=== PATIENT | female | born 1990 | race Asian ===

== ENCOUNTER → 2023-10-23 09:20 | Outpatient (REF) | payer OTHER, SELFPAY ==
[2023-10-23 10:17] LABS: % Basophils 0.4 % (0-2); % Eosinophils 0.4 % (0-6); % Immature Granulocytes 0.2 % (0-0.5); % Lymphocytes 18.9 % (20.5-51.1); % Monocytes 7.8 % (1.7-9.3); % Neutrophils 72.3 % (42.2-75.2); Absolute Lymphocytes 0.9 10^3/uL (1.2-3.4); Absolute Monocytes 0.4 10^3/uL (0.1-0.6); Absolute Neutrophils 3.3 10^3/uL (1.4-6.5); Hemoglobin 13.4 g/dL (12.0-16.0); Mean Corp Hgb Conc. 34.4 g/dL (33.0-37.0); Mean Corpuscular Hgb 31.5 pg (27.0-31.0); Mean Corpuscular Volume 91.5 fL (81.0-99.0); Mean Platelet Volume 9.6 fL (7.4-10.4); Nucleated Red Blood Cells % 0 %; Platelet Count 208 10^3/uL (130-400); Red Blood Cell Count 4.26 10^6/uL (4.20-5.40); Red Cell Dist. Width 12.2 % (11.5-14.5); White Blood Cell Count 4.6 10^3/uL (4.8-10.8)
[2023-10-23 10:20] LABS: Urine Albumin Negative (Neg - Trace); Urine Bilirubin Negative (Negative); Urine Character Clear (Clear); Urine Color Yellow; Urine Glucose Negative (Negative); Urine Ketone Negative (Negative); Urine Leukocyte Negative (Negative); Urine Nitrite Negative (Negative); Urine Occult Blood Negative (Negative); Urine Urobilinogen Negative (Neg - 1+)
[2023-10-23 10:46] LABS: ALT (SGPT) 15 U/L (0-35); AST (SGOT) 24 U/L (14-36); Albumin 4.7 g/dl (3.5-5.0); Alkaline Phosphatase 39 U/L (38-126); Blood Urea Nitrogen 13 mg/dl (7-17); Calcium 9.7 mg/dl (8.4-10.2); Carbon Dioxide 27 mmol/L (22-30); Chloride 100 mmol/L (98-107); Glucose 86 mg/dl (70-99); Potassium 4.4 mmol/L (3.5-5.1); Sodium 136 mmol/L (135-145); Total Bilirubin 0.7 mg/dl (0.2-1.3); Total Protein 7.5 g/dl (6.3-8.2); eGFR > 60.00
[2023-10-23 10:51] LABS: Protein/creatinine Ratio 0.1; Urine Protein 5 mg/dl
[2023-10-23 10:54] LABS: Complement C3 63 mg/dl (88-165)
[2023-10-23 11:01] LABS: Urine Bacteria Few (Negative); Urine Red Blood Cell 0-2 /HPF (0-2); Urine White Cell 0-2 /HPF (0-5)
[2023-10-23 11:06] LABS: Erythrocyte Sed Rate 6 mm/hour (0-20)
[2023-10-23 11:21] LABS: Ferritin 58.4 ng/ml (6.24-137)
[2023-10-25 07:27] LABS: ANA, IgG Reflex to HEp-2 Detected (None Detected)
[2023-10-25 19:49] LABS: ds-DNA Ab, IgG Reflex To Titer 112 IU (0-24)
[2023-10-26 15:36] LABS: ANA, HEp-2, IgG Detected (<1:80)
[2023-10-29 07:14] LABS: ANA Pattern Homogeneous
== END ==
LOC: RAD 09:20
PROVIDERS: ATTENDING PHYSICIAN Internal Medicine Rheumatology; FAMILY PHYSICIAN Internal Medicine; OTHER PHYSICIAN Physician Assistant Medical
DX: M54.12 Radiculopathy, cervical region (principal); L93.0 Discoid lupus erythematosus; D76.1 Hemophagocytic lymphohistiocytosis
CPT/HCPCS: 36415; 72050; 80053; 81003; 81015; 82570; 82728; 84156; 85025; 85652; 86038; 86039; 86160; 86225; 86256

== ENCOUNTER → 2024-03-25 09:24 | Outpatient (REF) | payer OTHER, SELFPAY ==
[2024-03-25 10:52] LABS: % Basophils 0.6 % (0-2); % Eosinophils 1.4 % (0-6); % Immature Granulocytes 0.6 % (0-0.5); % Lymphocytes 24.8 % (20.5-51.1); % Monocytes 10.2 % (1.7-9.3); % Neutrophils 62.4 % (42.2-75.2); Absolute Eosinophils 0.1 10^3/uL (0-0.7); Absolute Lymphocytes 0.9 10^3/uL (1.2-3.4); Absolute Monocytes 0.4 10^3/uL (0.1-0.6); Absolute Neutrophils 2.3 10^3/uL (1.4-6.5); Hemoglobin 14.2 g/dL (12.0-16.0); Mean Corp Hgb Conc. 34.6 g/dL (33.0-37.0); Mean Corpuscular Hgb 32.3 pg (27.0-31.0); Mean Corpuscular Volume 93.4 fL (81.0-99.0); Mean Platelet Volume 9.5 fL (7.4-10.4); Nucleated Red Blood Cells % 0 %; Platelet Count 186 10^3/uL (130-400); Red Blood Cell Count 4.39 10^6/uL (4.20-5.40); White Blood Cell Count 3.6 10^3/uL (4.8-10.8)
[2024-03-25 11:11] LABS: Urine Albumin Negative (Neg - Trace); Urine Bilirubin Negative (Negative); Urine Character Clear (Clear); Urine Color Yellow; Urine Glucose Negative (Negative); Urine Ketone Negative (Negative); Urine Leukocyte Negative (Negative); Urine Nitrite Negative (Negative); Urine Occult Blood Negative (Negative); Urine Urobilinogen Negative (Neg - 1+)
[2024-03-25 11:54] LABS: Erythrocyte Sed Rate 10 mm/hour (0-20)
[2024-03-25 12:06] LABS: Urine Squamous Cell >30 /LPF (Few)
[2024-03-25 12:07] LABS: Urine Bacteria Few (Negative); Urine Red Blood Cell 0-2 /HPF (0-2); Urine White Cell 0-2 /HPF (0-5)
[2024-03-25 13:15] LABS: Protein/creatinine Ratio 0.1; Urine Protein 6 mg/dl
[2024-03-25 13:33] LABS: ALT (SGPT) 17 U/L (0-35); AST (SGOT) 28 U/L (14-36); Albumin 4.6 g/dl (3.5-5.0); Alkaline Phosphatase 52 U/L (38-126); Blood Urea Nitrogen 12 mg/dl (7-17); Calcium 9.5 mg/dl (8.4-10.2); Carbon Dioxide 24 mmol/L (22-30); Chloride 103 mmol/L (98-107); Glucose 79 mg/dl (70-99); Potassium 4.1 mmol/L (3.5-5.1); Sodium 135 mmol/L (135-145); Total Bilirubin 0.8 mg/dl (0.2-1.3); Total Protein 7.3 g/dl (6.3-8.2); eGFR > 60.00
[2024-03-25 14:59] LABS: Ferritin 45.5 ng/ml (6.24-137)
[2024-03-27 00:06] LABS: Complement C3 70 mg/dl (88-165)
[2024-03-27 17:02] LABS: ds-DNA Ab, IgG Reflex To Titer >300 IU (0-24)
== END ==
LOC: REG 09:24
PROVIDERS: ATTENDING PHYSICIAN Internal Medicine Rheumatology; FAMILY PHYSICIAN Family Medicine
DX: L93.0 Discoid lupus erythematosus (principal)
CPT/HCPCS: 36415; 80053; 81003; 81015; 82570; 82728; 84156; 85025; 85652; 86160; 86225

== ENCOUNTER → 2024-10-28 12:05 | Outpatient (REF) | payer BC, SELFPAY | LOC: RAD 12:05 | PROVIDERS: ATTENDING PHYSICIAN Internal Medicine; FAMILY PHYSICIAN Physician Assistant Medical | DX: R07.89 Other chest pain (principal); M32.9 Systemic lupus erythematosus, unspecified | CPT/HCPCS: 71046 ==

== ENCOUNTER 2024-11-09 03:14 | Inpatient (IN) | payer BC, SELFPAY ==
[2024-11-08 21:47] VITALS: BP 136/85
[2024-11-08 22:09] LABS: % Basophils 0.2 % (0-2); % Eosinophils 0.4 % (0-6); % Immature Granulocytes 0.8 % (0-0.5); % Lymphocytes 14.7 % (20.5-51.1); % Monocytes 5.3 % (1.7-9.3); % Neutrophils 78.6 % (42.2-75.2); Absolute Lymphocytes 0.8 10^3/uL (1.2-3.4); Absolute Monocytes 0.3 10^3/uL (0.1-0.6); Hematocrit 34.4 % (37.0-47.0); Hemoglobin 12.1 g/dL (12.0-16.0); Mean Corp Hgb Conc. 35.2 g/dL (33.0-37.0); Mean Corpuscular Hgb 31.1 pg (27.0-31.0); Mean Corpuscular Volume 88.4 fL (81.0-99.0); Mean Platelet Volume 8.6 fL (7.4-10.4); Nucleated Red Blood Cells % 0 %; Platelet Count 249 10^3/uL (130-400); Red Blood Cell Count 3.89 10^6/uL (4.20-5.40); Red Cell Dist. Width 11.8 % (11.5-14.5); White Blood Cell Count 5.1 10^3/uL (4.8-10.8)
[2024-11-08 22:22] VITALS: BP 122/87
[2024-11-08 22:23] LABS: HCG, Serum Qualitative Screen Negative
[2024-11-08 22:24] LABS: ALT (SGPT) 14 U/L (0-35); AST (SGOT) 23 U/L (14-36); Albumin 3.6 g/dl (3.5-5.0); Alkaline Phosphatase 64 U/L (38-126); Blood Urea Nitrogen 17 mg/dl (7-17); Calcium 8.5 mg/dl (8.4-10.2); Carbon Dioxide 26 mmol/L (22-30); Chloride 103 mmol/L (98-107); Glucose 100 mg/dl (70-99); Potassium 3.8 mmol/L (3.5-5.1); Sodium 136 mmol/L (135-145); Total Bilirubin 0.4 mg/dl (0.2-1.3); Total Protein 6.5 g/dl (6.3-8.2); eGFR > 60.00
[2024-11-08 22:33] VITALS: BMI 24.3
[2024-11-08 22:33] LABS: NT-proBNP 467 pg/ml; Troponin I < 0.012 ng/ml
[2024-11-08] MEDS: DECADRON 8 MG IV (23:09)
[2024-11-08] MEDS: NSS 500 IV (23:09)
--- NOTE | 2024-11-08 23:17 | ED.GENMED ---
History of Present Illness
General
Chief Complaint: Chest Pain
Source: patient
Exam Limitations: none
Time Seen by Provider: 11/08/24 22:23
History of Present Illness
History of Present Illness:
33-year-old female with a history of lupus. Ongoing lupus flare like symptoms times months. Joint pains chest pains body aches. She has been on a long prednisone taper. Whenever her prednisone dosing gets low her symptoms return. The last few
days she noted some increased chest symptoms with increased chest pain pleuritic in nature. Mild shortness of breath. No fever. Mostly here for this evaluation. She states she also tends to respond to a dose of Decadron
Past History
Past History
ED Past Medical History: Other (Lupus possible fibromyalgia)
ED Past Surgical History: None
Social History
Tobacco: Non-smoker
Alcohol: None
Drug: None
Personal:
Living: with family
Employment: Employed
Family History
Family History: Other (Noncontributory)
Review of Systems
Review of Systems
All Other Systems: Not applicable
Constitutional: Denies fever or chills
ABD/GI: Reports no symptoms
Phy Exam
Physical Exam
Physical Exam:
GENERAL: Alert and oriented in no apparent distress
EYE: Orbits normal.
NECK: Supple, no significant adenopathy.
ENT: Pharynx without erythema
CARDIAC: Regular rate and rhythm without any obvious murmurs.
LUNGS: Clear breath sounds,normal
ABDOMEN: Soft, without focal tenderness or distention
NEUROLOGICAL: Alert and oriented , grossly non-focal
SKIN: Warm and dry, no rash or lesion, no discoloration, skin intact.
MUSCULOSKELETAL: No edema,no deformity.Good color
PSYCH: Normal and appropriate interaction.
Scores
Heart Score for Chest Pain Patients
STEMI patient?: Not applicable
Course
Orders/Labs/Results
Orders:
Orders
11/08/24 21:54
Cardiac Monitoring- Treatment ONCE
IV Insert/Care/Rem.- Treatment PRN
CR Chest - 2 Views Urgent
Comment:
Reason For Exam: respiratory distress
O2 Therapy [RESP] Urgent
Titrate/Wean O2 to maintain O2 sat greater than (%): 93
Special Instructions: TO MAINTAIN CONTINUOUS O2 SATS >/= 93%
Pulse Ox/cont/shift [RESP] Urgent
Quantity: 1
Special Instructions: continuous pulse ox
11/08/24 21:55
Test Result ONCE
11/08/24 21:59
C-Reactive Protein Urgent
Comment: ADD ON
Complete Blood Count/With Diff Urgent
Comprehensive Metabolic Panel Urgent
Erythrocyte Sed Rate Urgent
Comment: ADD ON
HCG, Serum Qualitative Screen Urgent
Comment: Notify provider if positive test present
NT-proBNP Urgent
Troponin I Urgent
11/08/24 22:57
Add On- LAB Urgent
Tests Added?: esr,crp
IV Insert/Care/Rem.- Treatment PRN
0.9% Sodium Chloride 500 ml [Nss] 500 ml IV BOLUS
Dexamethasone Sod Phosphate [Decadron] 8 mg IV NOW STA
11/08/24 23:19
Electrocardiogram (*1) Stat
Reason for Study: Other
Other Reason for Exam: chest pain
EKG- Treatment ONCE
11/09/24 00:01
CT Chest PE Study Urgent
Reason For Exam: Pleuritic chest pain. History of lupus
Abnormal Lab Results
11/08/24
21:59
RBC 3.89 L 10^6/uL
(4.20-5.40)
Hct 34.4 L %
(37.0-47.0)
MCH 31.1 H pg
(27.0-31.0)
Absolute Lymphs (auto) 0.8 L 10^3/uL
(1.2-3.4)
Immature Gran % 0.8 H %
(0-0.5)
Neutrophils % 78.6 H %
(42.2-75.2)
Lymphocytes % 14.7 L %
(20.5-51.1)
ESR 54 H mm/hour
(0-20)
Glucose 100 H mg/dl
(70-99)
C-Reactive Protein 27.10 H mg/L
(0.0-10.00)
11/08/24 21:59
11/08/24 21:59
Vital Signs
Initial and Last Documented VS:
Initial Vital Signs
Temp Pulse Resp BP Pulse Ox
99.1 F 89 20 136/85 99
11/08/24 21:47 11/08/24 21:47 11/08/24 21:47 11/08/24 21:47 11/08/24 21:47
Last Documented Vital Signs
Temp Pulse Resp BP Pulse Ox
99.1 F 70 20 123/86 96
11/08/24 21:47 11/09/24 00:52 11/09/24 00:52 11/09/24 00:52 11/09/24 00:52
MDM/Problems Addressed
Differential Diagnosis Includes:
Moderate symptoms related to her lupus flare with moderate pericardial effusion. Warrants inpatient management
*Radiology
Radiology exam reviewed: radiology read reviewed (Moderate pericardial effusion. Trace left pleural effusion atelectasis left base unchanged)
*Pulse Oximetry
Patient hypoxic: no
*EKG
Interpreted by ED Provider?: Yes
Interpretation: normal
Comparison EKG: no changes
Heart Rate: 87
Rate: normal
Rhythm: sinus
[place]: normal axis
Interval: normal interval
QRS Pattern: normal QRS
Ischemia: no ischemia
*Critical Care Note
Total Time (30-74mins, 75-104mins- exclusive of procedures): Not Applicable
ED Attending Note
-
Portions of this chart may have been created with voice recognition software.� Occasional wrong word or��sound alike� substitutions may have occurred due to the inherent limitations of voice recognition software.
Discharge Plan
Departure
Patient Disposition: Admit
Date of Disposition: 11/09/24
Time of Disposition: 01:38
Presentation/result/management discussed w/ accepting MD/DO: Hospitalist
Discharge Problem:
Moderate pericardial effusion, Lupus flare
Prescriptions:
No Action
hydroxychloroquine 200 MG tablet
300 mg PO DAILY
ibuprofen [Advil] 200 MG tablet
400 mg PO Q6HPRN PRN (Reason: fever)
cholecalciferol (vitamin D3) 2,000 UNITS tablet
2,000 units PO DAILY Qty: 30 0RF
prednisone
10 mg PO DAILY
Referrals:
Dorita Eagle PA-C [Family Provider] -
Interventions
Interventions:
*Risk Screen - Suicide Last Done: 11/08/24 21:47
*General Assessment Last Done: 11/08/24 21:47
*Neglect/Abuse Screening Last Done: 11/08/24 22:35
*ED- Fall Risk Assessment Last Done: 11/08/24 21:47
*ED COVID-19 Vaccine History Last Done: 11/08/24 21:47
ED- Cardiac Assessment Last Done: 11/08/24 23:15
Discharge Date and Time
Print Language: WOLOF
[2024-11-09 00:06] LABS: Erythrocyte Sed Rate 54 mm/hour (0-20)
[2024-11-09 00:52] VITALS: BP 123/86
--- NOTE | 2024-11-09 02:21 | HPS.HSE ---
Family Physician
-
Family Physician: Dorita Eagle PA-C
Chief Complaint
-
Chest Pain
History of Present Illness
Patient is a 33y F with PMH significant for SLE who presents to ED complaining of chest pain. Patient states that she has been having uncontrolled symptoms from lupus since 07/2024. She has been on varying doses of prednisone since that time
for control of her symptoms - most recently she has been taking 10mg daily for the most part (her Shake Maker advised her to adjust the dose as needed for control of her symptoms).
For the past 3 weeks patient has noted sharp left-sided chest pain. Pain is worse with movement, coughing, deep breathing, etc.
She has had no fevers - but did have a single episode of shaking chills several days ago.
She was seen by her PCP who treated her with 5 days of levofloxacin for suspected pneumonia based on outpatient CXR. Her symptoms did not improve.
Over the past 2 days, she has appreciated spread of the chest discomfort to the middle and right sides of the chest. With increasing symptoms she presented to the ED for further evaluation.
Patient does note some SOB - which she associates with shallow breathing / splinting to avoid pain.
No GI or complaints.
She is in the process of being evaluated to begin azathioprine for her SLE but has not started this yet.
She was previously treated with CellCept - but this was discontinued in March 2024.
Medical History
Past Medical History
Past Medical History: Reports Other
Additional Past Medical History:
SLE
Past Surgical History: Reports None
Social History
Tobacco: Non-smoker
Alcohol: None
Drug: None
Family History
Family History: Not pertinent
Allergies / Home Medications
Allergies reflects when Allergies were last updated in [facility].
Home Medications with original date entered in [facility]
Allergy/Medication List:
Allergies
Allergy/AdvReac Type Severity Reaction Status Date / Time
duloxetine [From Cymbalta] Allergy Nausea / Verified 11/08/24 21:46
Vomiting
Home Medications
hydroxychloroquine 200 mg tablet 300 mg PO DAILY Autoimmune disorder 09/13/19
ibuprofen 200 mg tablet (Advil) 400 mg PO Q6HPRN PRN fever 02/22/20
cholecalciferol (vitamin D3) 50 mcg (2,000 unit) tablet 2,000 units PO DAILY #30 tabs 02/27/20
prednisone 10 mg PO DAILY 11/08/24
Review of Systems
-
History Source: Patient
A 12 point ROS was completed and negative except as noted: Yes
Constitutional: Reports Fatigue and Chills; Denies Fever
EENT: Denies Sore Throat
Respiratory: Reports Trouble Breathing; Denies Cough or Hemoptysis
Cardiac: Reports Chest Pain; Denies Diaphoresis or Palpitations
Abdomen/GI: Denies Abdominal Pain, Nausea, Vomiting or Diarrhea
: Denies Dysuria, Frequency or Flank Pain
Musculoskeletal: Reports Joint Pain, Joint Swelling and Edema
Neurological: Denies Dizzy or Headache
Psych: Denies Depression or Anxiety
Physical Exam
Vital Signs
Vital Signs
Temp Pulse Resp BP Pulse Ox
99.1 F 70 20 123/86 96
11/08/24 21:47 11/09/24 00:52 11/09/24 00:52 11/09/24 00:52 11/09/24 00:52
Physical Exam
General: Other (33y F in no acute distress.)
HEENT: Moist mucous membranes and PERRLA
Respiratory: Other (Decreased BS bilaterally. No W/R/R.)
Cardiac: S1/S2 and Regular Rhythm; No Murmur
GI: Soft, Non Tender, Non Distended and Normal Bowel Sounds
Musculoskeletal: No Clubbing, No Cyanosis and Other (Trace edema / joint swelling x 4 extremities.)
Neuro: AO x 3
Laboratory Results
-
11/08/24 21:59
11/08/24 21:
Laboratory Results
Total Bilirubin 0.4 mg/dl (0.2-1.3) 11/08/24:
AST 23 U/L (14-36) 11/08/24:
ALT 14 U/L (0-35) 11/08/24:
Alkaline Phosphatase 64 U/L (38-126) 11/08/24:
Troponin I < 0.012 ng/ml 11/08/24:59
Impression/Plan
-
A/P: Patient is a 33y F with PMH significant for SLE who presents to ED complaining of worsening chest pain.
SLE with Subacute Flare
Pericarditis / Pericardial Effusion
- Admit for further evaluation and treatment.
- Prednisone 20mg BID for now and wean as able once symptoms improved.
- Continue current dose of Plaquenil.
- Toradol as needed for breakthrough pain / symptoms.
- GI protection with PPI for now.
- Check Echo.
- Cardiology evaluation for additional recommendations.
- Follow-up with Rheumatology for additional recommendations / azathioprine initiation after discharge.
DVT Prophylaxis: SCDs
Code Status: Full
[2024-11-09 03:53] VITALS: BP 105/67
[2024-11-09 04:13] VITALS: BP 121/74; BMI 24.4
--- NOTE | 2024-11-09 04:47 | PTCARENOTE ---
Patient arrived from the ED via stretcher at approximately 0400. Patient ambulated self from stretcher to bed - gait steady. AAOx3. VSS as documented. Assessment as documented. Patient oriented to room. Bed in lowest position. Call martinez within
reach.
[2024-11-09 06:00] VITALS: BMI 24.4
[2024-11-09 07:35] VITALS: BP 116/78
[2024-11-09 07:36] LABS: Hematocrit 36.1 % (37.0-47.0); Hemoglobin 12.5 g/dL (12.0-16.0); Mean Corp Hgb Conc. 34.6 g/dL (33.0-37.0); Mean Corpuscular Hgb 30.6 pg (27.0-31.0); Mean Corpuscular Volume 88.5 fL (81.0-99.0); Mean Platelet Volume 8.6 fL (7.4-10.4); Platelet Count 240 10^3/uL (130-400); Red Blood Cell Count 4.08 10^6/uL (4.20-5.40); Red Cell Dist. Width 11.7 % (11.5-14.5); White Blood Cell Count 4.2 10^3/uL (4.8-10.8)
[2024-11-09 08:08] LABS: Blood Urea Nitrogen 13 mg/dl (7-17); Calcium 8.7 mg/dl (8.4-10.2); Carbon Dioxide 27 mmol/L (22-30); Chloride 104 mmol/L (98-107); Estimated Creatinine Clearance 119 ml/min; Glucose 134 mg/dl (70-99); Potassium 3.9 mmol/L (3.5-5.1); Sodium 137 mmol/L (135-145); eGFR > 60.00
[2024-11-09] MEDS: VITAMIN D3 (cholecalciferol) 50 MCG PO (09:18)
[2024-11-09] MEDS: PROTONIX PO (09:18)
[2024-11-09] MEDS: DELTASONE 20 MG PO (09:18)
[2024-11-09] MEDS: PROTONIX 40 MG PO (09:22)
--- NOTE | 2024-11-09 10:15 | W.PN.UPDATE ---
Update Note
Progress Note Update
Seen by Dr. Stroud this morning.
Admitted with 3 weeks of chest pain more so on the left chest wall and pleuritic in nature. Was treated for possibility of left lower lobe pneumonia with antibiotics without any change last week. She still has pleuritic left chest pain. On top of
that she noticed that 3 days of anterior chest pain which is progressively worse. It was making her difficult to take a deep breath and was feeling short of breath. Better sitting forward and worse with lying back.
Patient also been experiencing increasing joint pain and discomfort symptoms for the last 3 weeks as well. She was suggested a higher dose of her prednisone by assembler seat but since the chest pain was severe she came to the hospital.
Since and a higher dose of steroid she is already feeling better with the chest pain though it is not resolved.
No pericardial rub. No crackles or wheeze in the left lung.
CT chest noted.
Clinical suspicion of pericarditis and pleuritis. Trace fluid send both pericardium n the left pleural area. No evidence of pneumonia in the left lung. Mild elevated inflammatory markers noted. Suspect this may be pleuropericardial manifestation
of her SLE.
Continue with current dose of steroids. Will discuss with the cardiology regarding colchicine versus regular NSAIDs in the setting of pericarditis and SLE.
[2024-11-09 11:10] VITALS: BP 115/68
--- NOTE | 2024-11-09 12:06 | CM ---
Cm reviewed medical records. Patient denies history of SNF, VN or DME. Patient is active with her PCP. Patient has medication coverage.
PLAN: home no needs.
--- NOTE | 2024-11-09 12:23 | PTCARENOTE ---
pt did not take plaquenil this morning. states she takes it as a HS dose. MD made aware. dose timing adjusted with pharmacy.
--- NOTE | 2024-11-09 14:47 | CON.CAR ---
Consultation
Consultation Request
Date/Time Consultation Requested: 11/09/24 9:00AM
Date/Time Consultation Performed: 11/09/24 2:00pm
Requesting Provider: DR Peters
Performing Provider: DR Garcia
Reason for Consultation: chest pains
Medical History
-
Chief Complaint: Chest pain
History of Present Illness:
33-year-old female with past medical history of lupus presents to [facility] with several days of left-sided chest discomfort, coughing, and substernal chest pains. The pain has been waxing waning for several days and has worsened over the
past 24 hours. It was worse with positional changes such as lying down and on her right side. When she sat up it felt better. It was worse with deep breaths. She has never had pericarditis before. She denies any orthopnea, PND, or edema. She
has no palpitations or syncope. She has been having a lupus flare recently and her steroids were recently increased from 10 mg daily to 20 mg p.o. twice daily. She takes Plaquenil for maintenance. She has been having more joint pain and fatigue.
She did have a recent chest x-ray which suggested possible pneumonia. We are asked to evaluate her for pericarditis. CT scan did reveal a small pericardial effusion. She currently feels better. She had been taking NSAIDs recently for the past
week or so with minimal improvement
Past Medical History
Past Medical History: Other (Lupus, pneumonia, pleurisy)
Past Surgical History: None
Social History
Tobacco: Non-Smoker
Alcohol: None
Drug: None
Personal:
Living: With Family
Family History
Family History: Reviewed & Not Pertinent
Allergies / Home Medications
Allergy/AdvReac Type Severity Reaction Status Date / Time
duloxetine [From Cymbalta] Allergy Nausea / Verified 11/08/24 21:46
Vomiting
�Medication �Instructions �Recorded �Confirmed �Type
hydroxychloroquine 200 mg tablet 300 mg PO DAILY Autoimmune disorder 09/13/19 11/08/24 History
ibuprofen 200 mg tablet (Advil) 400 mg PO Q6HPRN PRN fever 02/22/20 11/08/24 History
cholecalciferol (vitamin D3) 50 2,000 units PO DAILY #30 tabs 02/27/20 11/08/24 Rx
mcg (2,000 unit) tablet
prednisone 10 mg PO DAILY 11/08/24 11/08/24 History
Review of Systems
-
History Source: Patient
Constitutional: Fatigue
EENT: No Symptoms
Respiratory: Cough
Cardiac: Chest Pain
Abdomen/GI: No Symptoms
: No Symptoms
Musculoskeletal: Joint Pain and Muscle Pain
Skin: Rash
Neurological: No Symptoms
Endocrine: No Symptoms
Hematologic/Lymphatic: No Symptoms
Physical Exam
Vital Signs
Temp Pulse Resp BP Pulse Ox
99.2 F 71 16 115/68 99
11/09/24 11:10 11/09/24 11:10 11/09/24 11:10 11/09/24 11:10 11/09/24 14:31
Lab Results
11/09/24 07:16
11/09/24 07:16
Troponin I < 0.012 ng/ml 11/08/24 21:59
Wek-S-Cdsnumktmmf Pept 467 pg/ml 11/08/24 21:59
Physical Exam
General: Well Developed and Well Nourished
HEENT: Normocephalic
Respiratory: Clear
Cardiac: S1/S2, Regular Rhythm and Other (no rub)
GI: Non Tender and Non Distended
Skin: Warm and Dry
Neuro: AO x 3
Psych: Calm
Impression / Plan
-
Assess:
Chest pain/pleurisy/pericarditis
Lupus with active flare
Elevated CRP
Leukopenia
EKG: Normal sinus rhythm with no ST abnormalities
CT scan 11/09/24, no pulmonary embolism, small pericardial effusion, trace left pleural effusion left lower lobe atelectasis
Plan:
CT scan was reviewed which does have some small pericardial fluid. Her EKG though is normal with no ST abnormalities. I suspect there could be an episode of pericarditis but also some pleurisy as well. These can be difficult to distinguish.
Continue steroids. She likely is having a lupus flare with elevated CRP and D-dimer.
Will add colchicine 0.6 mg p.o. twice daily x 1 week and 0.6 mg daily for 1 month total
Will arrange for outpatient echocardiogram.
Stable for discharge from cardiac standpoint.
Continue Plaquenil
Data Reviewed
-
EKG: Tracing Personally Visualized and interpreted
Radiology: Report Reviewed by me
CT Scan: Report Reviewed by me
Labs: Labs Reviewed by me
Old Records: Reviewed
--- NOTE | 2024-11-09 15:12 | W.DCSUMMARY ---
Discharge Summary
Discharge Data
Date of Admission: 11/09/24
Date of Discharge: 11/09/24
-
Pending Results: No
Hospital Course
Primary diagnosis:
Chest pain possibly from pleural pericardial disease manifestation of SLE.
SLE with flareup of symptoms
Secondary diagnosis:
SLE
Hospital course:
Patient with SLE on chronic prednisone and Plaquenil and further plan for possibility of going on Imuran in near future presented with 3 weeks of worsening of her joint symptoms and also left-sided pleuritic chest pain. She had a follow-up by PCP
and had an x-ray which raised the concern of possible left lung pneumonia and had antibiotics without any change in the nature of the pain. She also started to develop anterior chest wall discomfort but pain which was worse with lying down and
improved with sitting forward. CT of the chest showed no evidence of PE but has small pericardial effusion and small left pleural effusion but no pneumonia. Clinical symptoms fits with pleurisy and as well as possible pericarditis. Not enough
fluid to tap and analyzed.
Seen by cardiology who recommends colchicine 0.6 mg twice a day for a week and then daily for a month. They would arrange outpatient echocardiogram.
Patient was feeling improved with the higher dose of prednisone initiated here 20 mg twice daily. Advised to follow-up with primary negative turner at [facility] for further taper of steroids. She is chronically on 10 mg daily.
Consultants on board:
Cardiology Daron Madrigal
Discharge Plan
-
Patient Disposition: Home (Routine Discharge)
Discharge Diagnosis/Procedures: Chest pain with left pleuritic chest pain and clinical concern of pericardial pain; SLE with ongoing joint flare symptoms
Condition: Fair
Diet: Regular
Activity: As tolerated
Driving Restrictions: As prior to admission
Bathing Restrictions: None
Others Tests: Echocardiogram next week - cards would arrange it
Activity Restrictions/Additional Instructions:
Follow-up with your negative turner at [facility] in a week
Referrals:
Dylon Garcia MD [Active] - (Call for Echocardiogram testing )
Dorita Eagle PA-C [Family Provider] - in less than 1 week
Prescriptions:
New
acetaminophen 325 mg Tablet
650 mg PO Q4HPRN PRN (Reason: Mild Pain / Temp > 101) Qty: 1 0RF
colchicine 0.6 mg tablet
0.6 mg PO DAILY Qty: 44 0RF
Rx Instructions:
take twice daily for one week and once daily for a month
prednisone 20 mg Tablet
20 mg PO BID Qty: 28 0RF
Rx Instructions:
follow with Rheum for taper
Continued
hydroxychloroquine 200 MG tablet
300 mg PO DAILY
cholecalciferol (vitamin D3) 2,000 UNITS tablet
2,000 units PO DAILY Qty: 30 0RF
Discontinued
ibuprofen [Advil] 200 MG tablet
400 mg PO Q6HPRN PRN (Reason: fever)
prednisone
10 mg PO DAILY
Discharge Orders:
Discharge Patient (As Directed); Ordered 11/09/24
Ordered By: Mauricio Peters
Discharge Date and Time
Print Language: OCCITAN
[2024-11-09 16:00] VITALS: BP 120/79
== END 2024-11-09 16:04 | disposition home or self-care (01) | DRG 546 ==
LOC: 2 NORTH 03:14
PROVIDERS: ADMITTING PHYSICIAN Hospitalist; ATTENDING PHYSICIAN Internal Medicine; CONSULT PHYSICIAN Internal Medicine Cardiovascular Disease; EMERGENCY PHYSICIAN Emergency Medicine; FAMILY PHYSICIAN Physician Assistant Medical
DX: M32.9 Systemic lupus erythematosus, unspecified (principal); I31.39 Other pericardial effusion (noninflammatory); Z79.52 Long term (current) use of systemic steroids
CPT/HCPCS: 71046; 71275; 80048; 80053; 83880; 84484; 84703; 85025; 85027; 85652; 86140; 93005; 96374; 99285; Q9967

== ENCOUNTER → 2024-11-12 08:10 | Outpatient (REF) | payer BC, SELFPAY | LOC: HWRCS 08:10 | PROVIDERS: ATTENDING PHYSICIAN Internal Medicine Cardiovascular Disease; FAMILY PHYSICIAN Physician Assistant Medical | DX: I31.39 Other pericardial effusion (noninflammatory) (principal); M32.12 Pericarditis in systemic lupus erythematosus | CPT/HCPCS: 93306 ==

== ENCOUNTER → 2025-03-04 08:26 | Outpatient (REF) | payer BC, SELFPAY ==
[2025-03-04 09:31] LABS: Hematocrit 40.5 % (37.0-47.0); Hemoglobin 13.8 g/dL (12.0-16.0); Mean Corp Hgb Conc. 34.1 g/dL (33.0-37.0); Mean Corpuscular Volume 94.0 fL (81.0-99.0); Nucleated Red Blood Cells % 0 %; Platelet Count 268 10^3/uL (130-400); Red Cell Dist. Width 13.0 % (11.5-14.5)
[2025-03-04 09:43] LABS: Urine Character Slightly Cloudy (Clear)
[2025-03-04 09:57] LABS: ALT (SGPT) 32 U/L (0-35); AST (SGOT) 26 U/L (14-36); Albumin 4.2 g/dl (3.5-5.0); Alkaline Phosphatase 45 U/L (38-126); Blood Urea Nitrogen 14 mg/dl (7-17); Calcium 9.6 mg/dl (8.4-10.2); Carbon Dioxide 24 mmol/L (22-30); Chloride 107 mmol/L (98-107); Glucose 109 mg/dl (70-99); Potassium 4.1 mmol/L (3.5-5.1); Sodium 137 mmol/L (135-145); Total Protein 7.0 g/dl (6.3-8.2); Urine Squamous Cell >30 /LPF (Few); eGFR > 60.00
[2025-03-04 10:00] LABS: Urine Red Blood Cell 0-2 /HPF (0-2)
[2025-03-04 10:31] LABS: Ferritin 65.4 ng/ml (6.24-137)
[2025-03-06 23:21] LABS: ds-DNA Ab, IgG Reflex To Titer >300 IU (0-24)
[2025-03-09 08:02] LABS: ds-DNA Ab, IgG Titer 1:2560 (<1:10)
== END ==
LOC: REG 08:26
PROVIDERS: ATTENDING PHYSICIAN Internal Medicine Rheumatology; FAMILY PHYSICIAN Physician Assistant Medical
DX: D76.1 Hemophagocytic lymphohistiocytosis (principal); L93.0 Discoid lupus erythematosus
CPT/HCPCS: 36415; 80053; 81003; 81015; 82570; 82728; 84156; 85025; 85652; 86160; 86225; 86256